=== PATIENT | male | born 1960 | race Caucasian/White ===

== ENCOUNTER 2021-10-06 02:57 | Emergency (ER) | payer SELFPAY ==
[~2021-10-06] VITALS: Ht 170.1 cm; Wt 75.0 kg
[2021-10-06] MEDS ORDERED: KETOROLAC 30 MG/ML VIAL IVP STA (03:14)
[2021-10-06 03:15] LABS: BILIRUBIN,URINE NEGATIVE (NEGATIVE); CLARITY,URINE CLEAR; COLOR,URINE YELLOW; GLUCOSE, URINE (UA) NEGATIVE (NEGATIVE); KETONES,URINE NEGATIVE (NEGATIVE); LEUKOCYTE ESTERASE ,URINE NEGATIVE (NEGATIVE); NITRITE,URINE NEGATIVE (NEGATIVE); PROTEIN,URINE NEGATIVE (NEGATIVE)
[2021-10-06] MEDS ORDERED: LACTATED RINGERS 1,000 ML IV ONE (03:15)
--- NOTE | 2021-10-06 03:21 | ED Abdominal Pain ---
General Chief Complaint: Abdominal/GI Problems Stated Complaint: LOW R SIDE ABD/BACK PAIN Source of Information: Patient History of Present Illness Date Seen by Provider: Oct 06, 2021 Time Seen by Provider: 03:06 Initial Comments PT ARRIVES VIA POV FROM HOME C/O RLQ AND RIGHT FLANK PAIN SINCE [address] C/O NAUSEA, NO VOMITING NO DIARRHEA NO FEVER HAS HAD SOME URINARY URGENCY, FREQUENCY, SMALL AMOUNTS, WEAK STREAM BUT IS ONGOING PROBLEM STATES HE WAS ON MEDICATION "FOR URINE" BUT RAN OUT ABOUT A MONTH AGO STATES HE HAD THIS SAME PAIN 2 WEEKS AGO AND WENT TO [facility] ON [facility] IN [place],AND WAS TOLD THAT HE NEEDED TO GO TO ER, BUT HE NEVER DID. STATES HIS PAIN WENT AWAY, AND HAS NOT HAD ANY UNTIL [facility] PT STATES THE DAY AFTER HE WENT TO [facility]" HE HAD BLOOD IN HIS URINE. NONE SINCE PT HAS NOT ATTEMPTED TO FOLLOW UP WITH HIS PCP AT ANY TIME NO HISTORY OF SIMILAR, PRIOR TO 2 WEEKS AGO NO ABDOMINAL SURGERIES OR GI/ PROBLEMS HAS NOT TAKEN ANYTHING FOR PAIN PT HAS NOT HAD COVID-19 VACCINE PT HAD COVID-19 05/30/21. NOT SEEN BY PROVIDER, NO TREATMENT OR HOSPITALIZATION PCP: [facility] [place] Allergies and Home Medications Allergies Coded Allergies: aspirin (Verified Allergy, Intermediate, 10/06/21) E[facility] Patient Home Medication List Home Medication List Reviewed: Yes Hydrocodone/Acetaminophen (Hydrocodone-Acetamin 5-325 mg) 1 Each Tablet, 1-2 EAC H PO Q4-6 HOURS PRN for PAIN Prescribed by: LAURIE MOORE on 10/06/21 0550 Ondansetron (Ondansetron Odt) 4 Mg Tab.rapdis, 4 MG PO Q4H Prescribed by: LAURIE MOORE on 10/06/21 0550 Tamsulosin HCl (Flomax) 0.4 Mg Cap, 0.4 MG PO DAILY Prescribed by: LAURIE MOORE on 10/06/21 0550 Review of Systems Review of Systems Constitutional: no symptoms reported Respiratory: No Symptoms Reported Cardiovascular: No Symptoms Reported Gastrointestinal: See HPI, Abdominal Pain; Denies Constipated, Denies Diarrhea; Nausea; Denies Vomiting Genitourinary: See HPI, Frequency, Flank Pain, Urgency Musculoskeletal: see HPI, back pain Skin: no symptoms reported Psychiatric/Neurological: No Symptoms Reported Endocrine: No Symptoms Reported Hematologic/Lymphatic: No Symptoms Reported Past Bkonkzh-Ibeflf-Vxvpby Hx Patient Social History Tobacco Use?: No Substance use?: No Alcohol Use?: No Past Medical History Surgeries: Yes (LEFT TOTAL KNEE REPLACEMENT) Joint Replacement, Orthopedic Respiratory: No Cardiac: No Neurological: No Genitourinary: Yes (? PROSTATE PROBLEMS ? ) Gastrointestinal: No Musculoskeletal: Yes (LEFT TOTAL KNEE REPLACEMENT) Arthritis, Fractures Endocrine: No HEENT: No Cancer: No Psychosocial: No Integumentary: No Blood Disorders: No Family Medical History PT STATES HE HAD COVID-19 ON 05/30/21--NO HOSPITALIZATION OR TREATMENT Physical Exam Vital Signs Vital Signs - First Documented 10/06/21 03:00 Temp 36.9 Pulse 83 Resp 18 B/P (MAP) 151/91 (111) Pulse Ox 96 O2 Delivery Room Air Capillary Refill : Height/Weight/BMI Height: '" Weight: lbs. oz. kg; BMI Method: General Appearance: WD/WN, no apparent distress, other (DOES NOT APPEAR TO BE IN ANY DISCOMFORT OR DISTRESS) Respiratory: normal breath sounds, no respiratory distress, no accessory muscle use Cardiovascular: regular rate, rhythm, no murmur Gastrointestinal: soft, tenderness (RLQ, RIGHT MID ABDOMEN AND RIGHT FLANK TE NDERNESS) Extremities: normal inspection Back: no vertebral tenderness, CVA tenderness (R) Neurologic/Psychiatric: emergency room rn II-XII nml as tested, no motor/sensory deficits, alert, normal mood/affect, oriented x 3 Skin: normal color, warm/dry; No rash Progress/Results/Core Measures Results/Orders Lab Results Laboratory Tests Test 10/06/21 03:00 10/06/21 03:15 Range/Units Urine Color YELLOW Urine Clarity CLEAR Urine pH 6.0 5-9 Urine Specific [place] >=1.030 1.016-1.022 Urine Protein NEGATIVE NEGATIVE Urine Glucose (UA) NEGATIVE NEGATIVE Urine Ketones NEGATIVE NEGATIVE Urine Nitrite NEGATIVE NEGATIVE Urine Bilirubin NEGATIVE NEGATIVE Urine Urobilinogen 0.2 < = 1.0 MG/DL Urine Leukocyte Esterase NEGATIVE NEGATIVE Urine RBC (Auto) TRACE-I H NEGATIVE Urine RBC 2-5 H /HPF Urine WBC NONE /HPF Urine Crystals NONE /LPF Urine Bacteria TRACE /HPF Urine Casts NONE /LPF Urine Mucus NEGATIVE /LPF Urine Culture Indicated NO White Blood Count 8.8 4.3-11.0 10^3/uL Red Blood Count 5.06 4.30-5.52 10^6/uL Hemoglobin 15.4 13.3-17.7 g/dL Hematocrit 46 40-54 % Mean Corpuscular Volume 91 80-99 fL Mean Corpuscular Hemoglobin 30 25-34 pg Mean Corpuscular Hemoglobin Concent 34 32-36 g/dL Red Cell Distribution Width 12.1 10.0-14.5 % Platelet Count 183 130-400 10^3/uL Mean Platelet Volume 9.9 9.0-12.2 fL Immature Granulocyte % (Auto) 0 % Neutrophils (%) (Auto) 73 42-75 % Lymphocytes (%) (Auto) 13 12-44 % Monocytes (%) (Auto) 11 0-12 % Eosinophils (%) (Auto) 2 0-10 % Basophils (%) (Auto) 1 0-10 % Neutrophils # (Auto) 6.4 1.8-7.8 10^3/uL Lymphocytes # (Auto) 1.2 1.0-4.0 10^3/uL Monocytes # (Auto) 0.9 0.0-1.0 10^3/uL Eosinophils # (Auto) 0.2 0.0-0.3 10^3/uL Basophils # (Auto) 0.1 0.0-0.1 10^3/uL Immature Granulocyte # (Auto) 0.0 0.0-0.1 10^3/uL Sodium Level 139 135-145 MMOL/L Potassium Level 4.3 3.6-5.0 MMOL/L Chloride Level 109 H 98-107 MMOL/L Carbon Dioxide Level 19 L 21-32 MMOL/L Anion Gap 11 5-14 MMOL/L Blood Urea Nitrogen 27 H 7-18 MG/DL Creatinine 1.25 0.60-1.30 MG/DL Estimat Glomerular Filtration Rate 59 BUN/Creatinine Ratio 22 Glucose Level 115 H 70-105 MG/DL Calcium Level 8.8 8.5-10.1 MG/DL Corrected Calcium 8.8 8.5-10.1 MG/DL Total Bilirubin 0.3 0.1-1.0 MG/DL Aspartate Amino Transf (AST/SGOT) 22 5-34 U/L Alanine Aminotransferase (ALT/SGPT) 22 0-55 U/L Alkaline Phosphatase 46 40-136 U/L Total Protein 6.9 6.4-8.2 GM/DL Albumin 4.0 3.2-4.5 GM/DL My Orders Orders - LAURIE MOORE DO Ed Iv/Invasive Line Start (10/06/21 03:06) Cbc With Automated Diff (10/06/21 03:06) Comprehensive Metabolic Panel (10/06/21 03:06) Ua Culture If Indicated (10/06/21 03:06) Ct Abd/Pelvis Wo(Kidney Stone) (10/06/21 03:14) Abdomen/Kub 1view (10/06/21 03:14) Ed Iv/Invasive Line Start (10/06/21 03:14) Lactated Ringers (Lr 1000 Ml Iv Solution (10/06/21 03:15) Ketorolac Injection (Toradol Injection) (10/06/21 03:14) Tamsulosin Capsule (Flomax Capsule) (10/06/21 05:45) Rx-Hydrocodone/Apap 5-325 Mg (Rx-Vicodin (10/06/21 06:00) Rx-Ondansetron Po (Rx-Zofran Po) (10/06/21 05:51) Iv Push Tool And Production Planner Ed (10/06/21 ) Medications Given in ED Vital Signs/I&O 10/06/21 10/06/21 03:00 06:04 Temp 36.9 Pulse 83 71 Resp 18 20 B/P (MAP) 151/91 (111) 133/85 Pulse Ox 96 98 O2 Delivery Room Air Room Air Progress Progress Note : Progress Note GIVEN IV FLUIDS, ZOFRAN AND TORADOL WITH RELIEF OF SYMPTOMS MARKED DELAY IN RECEIVING CT REPORT FROM [facility] Comments KUB--NON-SPECIFIC BOWEL GAS PATTERN, PENDING RADIOLOGIST REVIEW CT ABDOMEN/PELVIS--PER [facility] VIA FAX AT Reviewed: Reviewed by Me Departure Impression Primary Impression: Right ureteral calculus Disposition: HOME, SELF-CARE Condition: Stable Departure-Patient Inst. Decision time for Depature: 05:42 Referrals: KIARA EAGLE MD NO,LOCAL PHYSICIAN (PCP) Primary Care Physician LANE BOSS MD Patient Instructions: Kidney Stones in Adults, How to Strain Your Urine Add. Discharge Instructions: LOTS OF CLEAR LIQUIDS STRAIN ALL URINE--RETURN ANY STONES TO UROLOGIST OFFICE FOLLOW UP WITH DR. GERA IN 2-3 DAYS FOR FURTHER CARE--CALL THURSDAY MORNING TO SCHEDULE APPOINTMENT RETURN TO ER IF SYMPTOMS WORSEN All discharge instructions reviewed with patient and/or family. Voiced understanding. Scripts Hydrocodone/Acetaminophen (Hydrocodone-Acetamin 5-325 mg) 1 Each Tablet 1-2 EACH PO Q4-6 HOURS PRN for PAIN, #20 TAB Prov: LAURIE MOORE DO 10/06/21 Ondansetron (Ondansetron Odt) 4 Mg Tab.rapdis 4 MG PO Q4H for Nausea/Vomiting, #10 TAB Prov: LAURIE MOORE DO 10/06/21 Tamsulosin HCl (Flomax) 0.4 Mg Cap 0.4 MG PO DAILY, #10 CAP Prov: LAURIE MOORE DO 10/06/21 LAURIE MOORE DO Oct 06, 2021 03:21
[2021-10-06 03:22] LABS: BACTERIA,URINE TRACE /HPF
[2021-10-06 03:25] LABS: BASOPHILS # (AUTO) 0.1 10^3/uL (0.0-0.1); BASOPHILS % (AUTO) 1 % (0-10); EOSINOPHILS # (AUTO) 0.2 10^3/uL (0.0-0.3); EOSINOPHILS % (AUTO) 2 % (0-10); HEMATOCRIT 46 % (40-54); HEMOGLOBIN 15.4 g/dL (13.3-17.7); LYMPHOCYTES # (AUTO) 1.2 10^3/uL (1.0-4.0); LYMPHOCYTES % (AUTO) 13 % (12-44); MEAN CORPUSCULAR HEMOGLOBIN 30 pg (25-34); MEAN CORPUSCULAR HGB CONC 34 g/dL (32-36); MEAN CORPUSCULAR VOLUME 91 fL (80-99); MEAN PLATELET VOLUME 9.9 fL (9.0-12.2); MONOCYTES # (AUTO) 0.9 10^3/uL (0.0-1.0); MONOCYTES % (AUTO) 11 % (0-12); NEUTROPHILS # (AUTO) 6.4 10^3/uL (1.8-7.8); NEUTROPHILS % (AUTO) 73 % (42-75); PLATELET COUNT 183 10^3/uL (130-400); WHITE BLOOD COUNT 8.8 10^3/uL (4.3-11.0)
[2021-10-06 03:44] LABS: BILIRUBIN,TOTAL 0.3 MG/DL (0.1-1.0); CALCIUM 8.8 MG/DL (8.5-10.1); CREATININE SERUM 1.25 MG/DL (0.60-1.30); POTASSIUM 4.3 MMOL/L (3.6-5.0); TOTAL PROTEIN 6.9 GM/DL (6.4-8.2)
[2021-10-06] MEDS ORDERED: TAMSULOSIN 0.4 MG (FLOMAX) CAP PO SCH (05:45)
--- NOTE | 2021-10-06 05:49 | Diagnostic Imaging Report ---
INDICATION: Right flank pain, abdominal pain onset yesterday. History of blood in urine 2 weeks ago. TECHNIQUE: 2 supine view of the abdomen 3:50 AM CORRELATION STUDY: None FINDINGS: Visualized lung bases appearing clear. There is moderate stool and bowel gas present. Some disproportionate gas within small bowel in the right mid abdomen. Gas to the level of the rectum. Findings do suggest high degree bowel obstruction. Approximately 5 mm calcification projects just inferior to the L3 transverse process. IMPRESSION: 1. Nonobstructive appearing bowel gas pattern. 2. A 5 mm calcification projecting just lateral to the lower lumbar spine. Nonspecific but could be within the expected course of the right ureter. Dictated by: Dictated on workstation # [id number]
[2021-10-06] MEDS ORDERED: ACHD5005 PO (05:50)
[2021-10-06] MEDS ORDERED: ONDA4TAB11 PO (05:50)
[2021-10-06] MEDS ORDERED: TMSL.4C PO (05:50)
[2021-10-06] MEDS ORDERED: RX-ONDANSETRON 4 MG ODT (ZOFRAN) PPK #4 PO STA (05:51)
[2021-10-06 06:04] VITALS: BP 133/85
--- NOTE | 2021-10-06 06:05 | Diagnostic Imaging Report ---
PROCEDURE: CT urinary tract, rule out kidney stone. TECHNIQUE: Multiple contiguous axial images were obtained through the abdomen and pelvis without the use of intravenous contrast. Auto Exposure Controls were utilized during the CT exam to meet ALARA standards for radiation dose reduction. INDICATION: Right-sided flank pain. COMPARISON: None. FINDINGS: The heart is unremarkable. Subsegmental atelectasis is seen in the lung bases. A small hiatal hernia is present. Obstructing calculus is seen in the mid right ureter measuring 0.6 cm with nwjc-qi-tcqmvakd right-sided hydroureteronephrosis. Bilateral nonobstructing calculi are seen measuring 0.3 cm in the right kidney and 0.4 cm in the left kidney. Right-sided perinephric fat stranding is seen. The urinary bladder is decompressed. The liver, spleen, pancreas, and adrenal glands have a normal appearance. There is no pathologically enlarged mesenteric or retroperitoneal adenopathy. The bowel loops are nondilated. The appendix is visualized in the right lower quadrant and has a normal appearance. There is no free fluid or free air. No acute osseous abnormalities. There is calcified aortic and iliac atherosclerotic plaque without aneurysm. There is no free air, loculated collection, or adenopathy in the pelvis. IMPRESSION: 1. Obstructing calculus in the mid right ureter measuring 0.6 cm with lzco-dw-wqbekfiw right-sided hydroureteronephrosis. 2. Additional bilateral nonobstructing calculi. Agree with overnight report. Dictated by: Dictated on workstation # [id number]
== END 2021-10-06 06:03 | disposition home or self-care (01) ==
LOC: ER 03:02
DX: N13.2 Hydronephrosis with renal and ureteral calculous obstruction (principal)
CPT/HCPCS: 36415; 74018; 74176; 80053; 81000; 85025; 96374

== ENCOUNTER → 2021-10-09 | Outpatient (CLI) | payer SELFPAY ==
[~2021-10-09] MED LIST: ACHD5005 PO; ONDA4TAB11 PO; TMSL.4C PO
--- NOTE | 2021-10-09 12:55 | Diagnostic Imaging Report ---
EXAMINATION: Abdomen 1 view HISTORY: RT URETERAL STONE COMPARISON: 10/06/2021 FINDINGS: There is a moderate amount of gas and stool throughout the colon. Nonobstructive bowel gas pattern. Stable 0.7 cm opacity within the right midabdomen compared to 10/06/2021. The lung bases are clear. The osseous structures are intact. IMPRESSION: Stable 0.7 cm right ureteral calculus. Dictated by: Dictated on workstation # [id number]
== END ==
LOC: RAD 12:23
PROVIDERS: ATTEND Urology
DX: N20.1 Calculus of ureter (principal)
CPT/HCPCS: 74018

== ENCOUNTER 2021-10-11 05:34 | Outpatient (CLI) | payer SELFPAY ==
[~2021-10-11] VITALS: Ht 170.2 cm; Wt 81.8 kg
== END 2021-10-11 09:44 | disposition home or self-care (01) ==
LOC: PREOP 05:34
PROVIDERS: ATTEND Urology
DX: Z01.818 Encounter for other preprocedural examination (principal)

== ENCOUNTER 2021-10-15 05:51 | Day surgery (SDC) | payer SELFPAY ==
[2021-10-15] VITALS (10 sets, daily range): BP systolic 84–138; BP diastolic 56–90
[~2021-10-15] VITALS: Ht 170.2 cm; Wt 81.8 kg
[2021-10-15] MEDS ORDERED: LACTATED RINGERS 1,000 ML IV PRN (06:15)
[2021-10-15] MEDS ORDERED: cefTRIAXone 1 GM PRE-MIX 50 ML IV ONE (06:45)
--- NOTE | 2021-10-15 06:57 | Progress Note-Pre Operative ---
Pre-Operative Progress Note H&P Reviewed The H&P was reviewed, patient examined and no changes noted. Date Seen by Provider: Oct 15, 2021 Time Seen by Provider: 06:57 Date H&P Reviewed: Oct 15, 2021 Time H&P Reviewed: 06:57 Pre-Operative Diagnosis: RT PROXIMAL URETERAL STONE LANE BOSS MD Oct 15, 2021 06:57
[2021-10-15] MEDS ORDERED: proPOfol 200 MG/20 ML (DIPRIVAN) VIAL IV ONE (07:03)
[2021-10-15] MEDS ORDERED: LIDOCAINE PF 2% 5 ML (XYLOCAINE) VIAL ONE (07:03)
[2021-10-15] MEDS ORDERED: ONDANSETRON 4 MG/2 ML (SDV) Z0FRAN ONE (07:03)
[2021-10-15] MEDS ORDERED: MIDAZOLAM 2 MG/2 ML (VERSED) VIAL ONE (07:04)
[2021-10-15] MEDS ORDERED: fentaNYL INJ 100 MCG/2 ML AMP ONE (07:04)
[2021-10-15] MEDS ORDERED: SEVOFLURANE (ULTANE) 15 ML INHAL SOLN ONE ×2 (07:07→07:08)
--- NOTE | 2021-10-15 07:25 | Progress Note-Post Operative ---
Post-Operative Progess Note Surgeon (s)/Inside Finisher (s) Surgeon LANE BOSS MD Inside Finisher: NONE Pre-Operative Diagnosis RT PROXIMAL URETERAL STONE Post-Operative Diagnosis SAME Procedure & Operative Findings Date of Procedure 10/15/21 Procedure Performed/Findings RT ESWL Anesthesia Type GENERAL Estimated Blood Loss Estimated blood loss (mL): NONE Specimens/Packing Specimens Removed NONE Packing: NONE LANE BOSS MD Oct 15, 2021 07:25
--- NOTE | 2021-10-15 07:27 | Discharge Inst-Urology ---
Discharge Inst-Urology Reconcile Patient Problems Problems Reviewed?: Yes Final Diagnosis RT PROXIMAL URETERAL STONE Patient Instructions/Follow Up Plan/Assessment/Instructions Please make appointment to been seen in office Sunday 10/28, KUB prior to it. KUB on way home Post ESWL instructions Increase oral fluids for 48 hours and then as needed. Diet and Activity as tolerated. If questions or concerns contact your physician Or seek help at emergency department. LANE BOSS MD Oct 15, 2021 07:26
--- NOTE | 2021-10-15 08:08 | Anesthesia-General Post-Op ---
MAC Patient Condition Mental Status/LOC: Same as Preop Cardiovascular: Satisfactory Nausea/Vomiting: Absent Respiratory: Satisfactory Pain: Controlled Complications: Absent Post Op Complications Complications None Follow Up Care/Instructions Patient Instructions None needed. Anesthesiology Discharge Order Discharge Order Patient is doing well, no complaints, stable vital signs, no apparent adverse anesthesia problems. No complications reported per nursing. TALON VILLALTA CRNA Oct 15, 2021 08:08
[2021-10-15] MEDS ORDERED: FUROSEMIDE 40 MG/4 ML INJ (LASIX) ONE (08:11)
[2021-10-15] MEDS ORDERED: KETOROLAC 30 MG/ML VIAL ONE (08:11)
[2021-10-15] MEDS ORDERED: morphine INJ 10 MG/ML 1ML (SYR OR VIAL) IVP ONE (08:15)
--- NOTE | 2021-10-15 08:36 | Diagnostic Imaging Report ---
INDICATION: Nephrolithiasis, right ureteral stone. TECHNIQUE: Single supine view of the abdomen at 6:45 AM. CORRELATION STUDY: 10/09/2021. FINDINGS: A 7 mm calcification projects just above the right L4 transverse process, minimally migrated inferiorly from prior. The bowel gas pattern appears unremarkable and unobstructed. Leftward curvature of the lumbar spine. IMPRESSION: Approximately 7 mm right ureteral calculus. Dictated by: Dictated on workstation # [id number]
[2021-10-15] MEDS ORDERED: cefTRIAXone 1,000 MG in SYRINGE-IVPB 0 SYRINGE IV ONE (09:00)
[2021-10-15] MEDS ORDERED: KETO10TA PO (10:00)
[2021-10-15] MEDS ORDERED: TMSL.4C PO (10:00)
[2021-10-15] MEDS ORDERED: NITR-65 PO (10:00)
--- NOTE | 2021-10-15 10:12 | Diagnostic Imaging Report ---
CLINICAL INDICATION: Postop ESWL. EXAM: X-ray of the abdomen, 2 supine views. COMPARISON: X-ray of the abdomen dated 10/05/2021. FINDINGS AND IMPRESSION: 1. The previously seen stone overlying the right L4 transverse process is not seen and may be resolved. There are no other areas concerning for urinary tract stones. Stable phleboliths in the right pelvis region. 2: Nonobstructive bowel gas pattern is seen. 3: There is left curvature of the lumbar spine and degenerative spurs. Dictated by: Dictated on workstation # [id number]
--- NOTE | 2021-10-15 13:21 | OPERATIVE REPORT ---
DATE OF SERVICE: 10/15/2021 PREOPERATIVE DIAGNOSIS: Right proximal ureteral stone. POSTOPERATIVE DIAGNOSIS: Right proximal ureteral stone. OPERATION PERFORMED: Right ESWL. SURGEON: Jb Boss MD ANESTHESIA: General. COMPLICATIONS: None. DESCRIPTION OF PROCEDURE: Under satisfactory general anesthesia, the patient laid supine on the ESWL table, right proximal ureteral stone was localized. Shocks were delivered at kV of 6, a total of 3000 shocks completely fragmented the stone that was hardly visualized. The patient received 40 mg of Lasix and 30 mg of Toradol IV at the end of the procedure. He tolerated the procedure and anesthesia well and was sent to recovery room in stable condition. Job ID: [id number] DocumentID: [id number] Dictated Date: 10/15/2021 07:58:55 Server Engineer Date: 10/15/2021 13:21:12 Dictated By: JB BOSS MD
== END 2021-10-15 10:27 | disposition home or self-care (01) ==
LOC: SDC 05:51
PROVIDERS: ATTEND Urology
DX: N20.1 Calculus of ureter (principal); M47.9 Spondylosis, unspecified; Z79.899 Other long term (current) drug therapy; Z96.652 Presence of left artificial knee joint; Z88.6 Allergy status to analgesic agent; Z88.5 Allergy status to narcotic agent; Z11.2 Encounter for screening for other bacterial diseases
CPT/HCPCS: 74018; 87081

== ENCOUNTER 2022-04-07 20:59 | Emergency (ER) | payer SELFPAY ==
[~2022-04-07] VITALS: Ht 170.1 cm; Wt 86.1 kg
[~2022-04-07 20:59] MED LIST changes: +KETO10TA PO; +NITR-65 PO
[2022-04-07 21:21] VITALS: BP 150/97
[2022-04-07] MEDS ORDERED: KETOROLAC 30 MG/ML VIAL IM STA (21:39)
--- NOTE | 2022-04-07 22:11 | ED Lower Extremity ---
General Chief Complaint: Trauma-Non Activation Stated Complaint: L LEG/TAILBONE PAIN,FELL Nursing Triage Note: PT AMBULATORY TO ROOM. PT STATES HE WAS CARRYING A LOG, STEPPED IN A HOLE, FELL ON HIS TAILBONE, AND DROPPED THE LOG ON HIS LEFT ARECHIGA. PT STATES HE IS HAVING PAIN IN HIS TAILBONE AND LEFT ARECHIGA History of Present Illness Date Seen by Provider: April 07, 2022 Time Seen by Provider: 21:20 Initial Comments 61-year-old male is here with complaints of left lower leg pain and swelling and tailbone pain after he stepped into a hole and fell back on his tailbone. As he fell he dropped a heavy log on his left lower leg causing the swelling and pain. Patient states he is uncomfortable and cannot get into a comfortable position due to the pain. Patient is able to ambulate. Denies sensory loss, head strike, LOC. This occurred today right before he came into the ER. Allergies and Home Medications Allergies Coded Allergies: aspirin (Verified Allergy, Intermediate, 10/06/21) EYES SWELL Patient Home Medication List Home Medication List Reviewed: Yes Ketorolac Tromethamine (Ketorolac Tromethamine) 10 Mg Tablet, 10 MG PO Q6H Prescribed by: AMANDA CASTREJON on 10/15/21 1000 Nitrofurantoin Monohyd/M-Cryst (Macrobid 100 mg Capsule) 100 Mg Capsule, 1 TAB PO BID WITH MEALS Prescribed by: AMANDA CASTREJON on 10/15/21 1000 Tamsulosin HCl (Flomax) 0.4 Mg Cap, 0.4 MG PO DAILY Prescribed by: AMANDA CASTREJON on 10/15/21 1000 Review of Systems Constitutional: no symptoms reported EENTM: no symptoms reported Respiratory: no symptoms reported Cardiovascular: no symptoms reported Gastrointestinal: no symptoms reported Genitourinary: no symptoms reported Musculoskeletal: back pain, other (leg pain) Skin: no symptoms reported Psychiatric/Neurological: No Symptoms Reported Past Evmmffj-Vzufdq-Oozeqw Hx Seasonal Allergies Seasonal Allergies: No Past Medical History Surgeries: Yes (LEFT TOTAL KNEE REPLACEMENT, R shoulder) Joint Replacement, Orthopedic Respiratory: No Cardiac: No Neurological: No Genitourinary: Yes (? PROSTATE PROBLEMS ? ) Kidney Stones Gastrointestinal: No Musculoskeletal: Yes (LEFT TOTAL KNEE REPLACEMENT) Arthritis, Fractures Endocrine: No HEENT: No Cancer: No Psychosocial: No Integumentary: No Blood Disorders: No Physical Exam Vital Signs Vital Signs - First Documented 04/07/22 21:21 Temp 37.0 Pulse 78 Resp 16 B/P (MAP) 150/97 (114) Pulse Ox 96 Capillary Refill : Height, Weight, BMI Height: '" Weight: lbs. oz. kg; 29.00 BMI Method: General Appearance: WD/WN, no apparent distress HEENT: PERRL/EOMI Neck: non-tender, full range of motion, supple, normal inspection Cardiovascular: normal peripheral pulses, regular rate, rhythm Back: normal inspection, no CVA tenderness, other (tailbone tenderness) Legs: left leg bone tenderness (middle 1/3 of lower leg), left leg ecchymosis, left leg limited range of motion, left leg pain, left leg soft tissue tenderness, left leg swelling Neurologic/Tendon: normal sensation, normal motor functions, normal tendon functions Neurologic/Psychiatric: no motor/sensory deficits, alert, normal mood/affect, oriented x 3 Skin: normal color Progress/Results/Core Measures Results/Orders My Orders Orders - [place] YOUSSEF MD Tibia/Fibula, Left, 2 Views (04/07/22 21:37) Sacrum And Coccyx (04/07/22 21:37) Ketorolac Injection (Toradol Injection) (04/07/22 21:39) Vital Signs/I&O 04/07/22 21:21 Temp 37.0 Pulse 78 Resp 16 B/P (MAP) 150/97 (114) Pulse Ox 96 Blood Pressure Mean: 114 Progress Progress Note : Progress Note 1. LEFT LOWER LEG INJURY: - XR LEFT TIB/FIB: - Toradol 30mg im STAT 2. LOW BACK PAIN: - XR Coccyx: - coccyx pillow to prevent coccyx pressure -Fnsm-pwl-qkzblfi lidocaine patch, Ibuprofen as needed for pain -Follow-up with Ortho as needed - For lower leg: Occasionally fractures may only appear on x-ray a week or so after the initial injury, and if pain and symptoms persist in left lower leg, repeat x-ray will be needed in 7 to 10 days. - Radiology reading for x-rays not available at night , explained to pt that if reading is incorrect or more in depth, the pt will be called in the morning for updated read. Diagnostic Imaging Diagonstic Imaging: Xray Plain Films/CT/US/NM/MRI: leg, other (cocyyc) Departure Impression Primary Impression: Fracture of coccyx Qualified Codes: S32.2XXA - Fracture of coccyx, initial encounter for closed fracture Additional Impression: Contusion of bone Disposition: HOME, SELF-CARE Condition: Stable Departure-Patient Inst. Referrals: NO,LOCAL PHYSICIAN (PCP/Family) Primary Care Physician Patient Instructions: Coccyx Fracture, Coccyx Injury, Minor Contusion ED Add. Discharge Instructions: - coccyx pillow to prevent coccyx pressure -Zobk-qui-wtzfbzj lidocaine patch, Ibuprofen as needed for pain -Follow-up with Ortho as needed - For lower leg: Occasionally fractures may only appear on x-ray a week or so after the initial injury, and if pain and symptoms persist in left lower leg, repeat x-ray will be needed in 7 to 10 days. - Radiology reading for x-rays not available at night , explained to pt that if reading is incorrect or more in depth, the pt will be called in the morning for updated read. All discharge instructions reviewed with patient and/or family. Voiced understanding. [place] YOUSSEF MD April 07, 2022 22:11
--- NOTE | 2022-04-07 22:23 | Diagnostic Imaging Report ---
CLINICAL INDICATIONS: Patient carrying a log, stepped in hole and fell on his tailbone. Patient dropped the log on his left mcgee. EXAM: X-ray of the sacrum/coccyx, 3 views. COMPARISON: None. FINDINGS AND IMPRESSION: 1: There is no acute fracture or dislocation visualized. Bowel gas obscures some portions of the sacrum. If there is continued concern for fracture, then CT scan would better evaluate. 2: There is degenerative disease with spurs involving the lower lumbar spine. There is severe loss of disk space height at the L4-L5 and L5-S1 levels. There is moderate loss of disk space height at the L3-L4 level. 3: There is sclerosis of the symphysis pubis region and spurring. Both hips show no significant abnormality. Dictated by: Dictated on workstation # [id number]
--- NOTE | 2022-04-07 22:30 | Diagnostic Imaging Report ---
CLINICAL INDICATION: Patient states she was carrying a log, stepped in hole and fell on his tailbone and dropped a log on his mcgee. EXAM: X-ray of the left tibia and fibula, 4 views. COMPARISON: None. FINDINGS: There is no acute fracture or dislocation. There is soft tissue swelling in the upper pretibial region. There is no soft tissue gas or radiodense foreign object. Left total knee arthroplasty is seen with no complications. IMPRESSION: There is no acute fracture or dislocation. Dictated by: Dictated on workstation # [id number]
== END 2022-04-07 22:50 | disposition home or self-care (01) ==
LOC: EDUNIT# 20:59 → ER 21:01
DX: S32.2XXA Fracture of coccyx, initial encounter for closed fracture (principal); S80.12XA Contusion of left lower leg, initial encounter; Z96.652 Presence of left artificial knee joint; W17.2XXA Fall into hole, initial encounter; W20.8XXA Other cause of strike by thrown, projected or falling object, initial encounter
CPT/HCPCS: 72220; 73590